=== PATIENT | male | born 2000 | race African-American/Black ===

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

== ENCOUNTER 2020-03-12 00:07 | Emergency (ER) | payer MEDICAID ==
[2020-03-12 00:17] VITALS: BP 134/107
--- NOTE | 2020-03-12 00:29 | ED Physician Documentation ---
PD HPI HEENT - Stated complaint Stated Complaint: EAR PX - Chief complaint Chief Complaint: Heent - History obtained from History obtained from: Other (patient eloped prior to my evaluation of this patient.) Review of Systems Unable to obtain: Other (eloped) PD PAST MEDICAL HISTORY - Past Medical History Past Medical History: No Cardiovascular: None Respiratory: None Neuro: None Endocrine/Autoimmune: None GI: None : None HEENT: None Psych: None Musculoskeletal: None Derm: None - Past Surgical History Past Surgical History: No - Present Medications Home Medications: Ambulatory Orders Medication Instructions Recorded Confirmed Permethrin [Elimite] 30 gm TP ONCE #1 cream..g. 11/08/17 Sulfamethox/Trimeth 800/160 1 each PO BID #13 tablet 11/08/17 [Bactrim Ds 800/160] - Allergies Allergies/Adverse Reactions: Allergies Allergy/AdvReac Type Severity Reaction Status Date / Time No Known Drug Allergies Allergy Verified 03/12/20 00:17 - Social History Does the pt smoke?: Yes Smoking Status: Current every day smoker Does the pt drink ETOH?: No Does the pt have substance abuse?: Yes - Immunizations Immunizations are current?: Yes - POLST Patient has POLST: No Results - Vitals Vitals: Vital Signs - 24 hr 03/12/20 00:15 Temperature 36.0 C L Heart Rate 103 H Respiratory 24 Rate Blood Pressure 134/107 H O2 Saturation 99 Oxygen O2 Source Room air PD MEDICAL DECISION MAKING - ED course Complexity details: other (patient eloped prior to my examination.) Departure - Departure Disposition: ED Elope Condition: Stable Discharge Date/Time: 03/12/20 00:40
== END 2020-03-12 00:40 | disposition left against medical advice (07) ==
LOC: ED 00:07
DX: Z53.21 Procedure and treatment not carried out due to patient leaving prior to being seen by health care provider (principal)